=== PATIENT | male | born 1935 | race Caucasian/White ===

== ENCOUNTER 2023-01-13 14:52 | Inpatient (IN) | payer OTHER ==
[2023-01-13] MEDS ORDERED: ALBUTEROL SO4 2.5/IPRATROPIUM 0.5 INH SOL 3 ML VIAL.NEB. NEB ONE ×2 (18:06→18:33)
[2023-01-13 18:45] LABS: HEMATOCRIT 32.8 % (35.4-49); HEMOGLOBIN 10.9 GM/dL (11.7-16.9); MCH 26.9 pg (25.7-33.7); MCHC 33.2 g/dl (32.0-35.9); MEAN CELL VOLUME 80.8 fl (80-96); MEAN PLT VOLUME 8.2 fl (7.5-11.1); PLATELET COUNT 257 10^3/uL (134-434); RBC 4.06 M/mm3 (4.00-5.60); RDW 15.7 % (11.9-15.9); WHITE BLOOD COUNT 10.3 K/mm3 (4.0-10.0)
[2023-01-13 19:01] LABS: BLOOD UREA NITROGEN 27.8 mg/dL (7-18)
[2023-01-13 19:02] LABS: CALCIUM 8.2 mg/dL (8.5-10.1)
[2023-01-13 19:05] LABS: CREATININE 0.9 mg/dL (0.55-1.3); PHOSPHOROUS 2.7 mg/dL (2.5-4.9)
[2023-01-13 19:07] LABS: BILIRUBIN,TOTAL 0.9 mg/dL (0.2-1); TOT PROT 7.5 g/dl (6.4-8.2)
[2023-01-13] MEDS ORDERED: ALBUTEROL SO4 2.5/IPRATROPIUM 0.5 INH SOL 3 ML VIAL.NEB. NEB SCH (20:00)
[2023-01-13] MEDS ORDERED: DEXAMETHASONE SOD PHOSPHATE 4 MG/1 ML VIAL IVPUSH ONE (20:29)
[2023-01-13] MEDS ORDERED: DEXAMETHASONE SOD PHOSPHATE 10 MG/1 ML VIAL ONE (21:01)
[2023-01-13 21:33] LABS: ANISOCYTOSIS 0; MACROCYTOSIS 0; OVALOCYTE 1+
[2023-01-13 23:20] LABS: INR 3.05 (0.83-1.09)
[2023-01-13 23:22] LABS: ACTIVATED PTT 41.4 SECONDS (25.2-36.5)
[2023-01-13 23:36] LABS: CALCIUM 8.4 mg/dL (8.5-10.1)
[2023-01-13 23:37] LABS: BLOOD UREA NITROGEN 29.1 mg/dL (7-18)
[2023-01-14] MEDS ORDERED: AZITHROMYCIN IVPB 500 MG in DEXTROSE 5%-WATER - 250 ML IVPB ONE (04:33)
[2023-01-14] MEDS ORDERED: REMDESIVIR 200 MG in SODIUM CHLORIDE 250 ML IVPB ONE (05:45)
[2023-01-14] MEDS: SODIUM CHLORIDE 1,000 ML IV SCH ×2 (06:18→23:13)
[2023-01-14] MEDS: INSULIN SLIDING SCALE (NOVOLOG) 1 VIAL SQ SCH ×4 (06:24→21:21)
[2023-01-14] MEDS: CEFTRIAXONE 1 GM in DEXTROSE 5%-WATER - 50 ML IVPB SCH (09:24)
[2023-01-14] MEDS: LISINOPRIL 5 MG TABLET PO SCH (09:24)
[2023-01-14] MEDS: LORATADINE 10 MG TABLET PO SCH (09:24)
[2023-01-14] MEDS: NIFEdipine E.R. 90 MG TABLET PO SCH (09:24)
[2023-01-14] MEDS: CYANOCOBALAMIN 1,000 MCG TABLET (FP) PO SCH (09:25)
[2023-01-14 09:52] LABS: HEMATOCRIT 31.3 % (35.4-49); HEMOGLOBIN 10.5 GM/dL (11.7-16.9); MCHC 33.7 g/dl (32.0-35.9); MEAN CELL VOLUME 80.2 fl (80-96); MEAN PLT VOLUME 8.2 fl (7.5-11.1); PLATELET COUNT 276 10^3/uL (134-434); RDW 15.7 % (11.9-15.9); WHITE BLOOD COUNT 7.2 K/mm3 (4.0-10.0)
[2023-01-14] MEDS ORDERED: PATIENT'S OWN MEDICATION (NON-FORMULARY) (Diclofenac Sodium 0.01 MG/MG Gel) TP SCH (10:00)
[2023-01-14 10:13] LABS: BLOOD UREA NITROGEN 30.3 mg/dL (7-18); CALCIUM 8.3 mg/dL (8.5-10.1)
[2023-01-14 10:14] LABS: MAGNESIUM 2.1 mg/dL (1.8-2.4)
[2023-01-14 10:17] LABS: CREATININE 1.1 mg/dL (0.55-1.3); PHOSPHOROUS 3.1 mg/dL (2.5-4.9)
[2023-01-14 10:18] LABS: TOT PROT 7.3 g/dl (6.4-8.2)
[2023-01-14 11:16] LABS: ANISOCYTOSIS 3+; MACROCYTOSIS 0; OVALOCYTE 1+
[2023-01-14] MEDS ORDERED: IRON SUCROSE INJECTION 200 MG in SODIUM CHLORIDE 90 ML IVPB ONE (16:06)
[2023-01-14] MEDS: RIVAROXABAN 15 MG TABLET PO SCH (18:06)
[2023-01-14] MEDS: ATORVASTATIN CA 10 MG TABLET (FP) PO SCH (21:14)
[2023-01-15] MEDS ORDERED: REMDESIVIR 100 MG in SODIUM CHLORIDE 250 ML IVPB ONE (04:39)
[2023-01-15] MEDS: SODIUM CHLORIDE 1,000 ML IV SCH ×2 (05:50→23:12)
[2023-01-15] MEDS: INSULIN SLIDING SCALE (NOVOLOG) 1 VIAL SQ SCH ×4 (07:35→22:31)
[2023-01-15] MEDS ORDERED: IRON SUCROSE INJECTION 200 MG in SODIUM CHLORIDE 90 ML IVPB ONE (10:00)
[2023-01-15] MEDS ORDERED: DEXAMETHASONE 2 MG TABLET PO SCH (10:00)
[2023-01-15] MEDS: NIFEdipine E.R. 90 MG TABLET PO SCH (10:00)
[2023-01-15] MEDS ORDERED: AZITHROMYCIN IVPB 250 MG in DEXTROSE 5%-WATER - 250 ML IVPB SCH (10:00)
[2023-01-15] MEDS: LISINOPRIL 5 MG TABLET PO SCH (10:00)
[2023-01-15] MEDS ORDERED: REMDESIVIR 100 MG in SODIUM CHLORIDE 250 ML IVPB SCH (10:00)
[2023-01-15] MEDS: LORATADINE 10 MG TABLET PO SCH (10:00)
[2023-01-15] MEDS ORDERED: PANTOPRAZOLE 40 MG TABLET PO SCH (10:00)
[2023-01-15] MEDS: CYANOCOBALAMIN 1,000 MCG TABLET (FP) PO SCH (10:01)
[2023-01-15] MEDS: CEFTRIAXONE 1 GM in DEXTROSE 5%-WATER - 50 ML IVPB SCH (10:01)
[2023-01-15] MEDS: RIVAROXABAN 15 MG TABLET PO SCH (17:37)
[2023-01-15] MEDS: ATORVASTATIN CA 10 MG TABLET (FP) PO SCH (22:19)
[2023-01-16] MEDS ORDERED: SODIUM CHLORIDE 0.9% 500 ML INFUS.BAG IV ONE (00:29)
[2023-01-16 02:15] LABS: CHLORIDE 97 mmol/L (98-107); SODIUM 132 mmol/L (136-145)
[2023-01-16 02:17] LABS: CALCIUM 7.9 mg/dL (8.5-10.1)
[2023-01-16 02:18] LABS: ALBUMIN 2.6 g/dl (3.4-5.0); CO2 12 mmol/L (21-32); GLUCOSE,RANDOM 123 mg/dL (74-106)
[2023-01-16 02:22] LABS: CREATININE 3.3 mg/dL (0.55-1.3); SGOT/AST 932 U/L (15-37); SGPT/ALT 553 U/L (13-61)
[2023-01-16 02:23] LABS: TOT PROT 6.5 g/dl (6.4-8.2)
[2023-01-16 02:24] LABS: ALK PHOS 204 U/L (45-117); ANION GAP 23 MMOL/L (8-16); BILIRUBIN,TOTAL 0.6 mg/dL (0.2-1); BLOOD UREA NITROGEN 78.1 mg/dL (7-18)
[2023-01-16 02:28] LABS: LACTIC ACID 11.1 mmol/L (0.4-2.0)
[2023-01-16] MEDS: MUPIROCIN 2% TOPICAL OINTMENT FOR DECOLONIZATION NS SCH ×2 (02:30→10:05)
[2023-01-16] MEDS ORDERED: PIPERACILLIN/TAZOB 4.5 GM 4.5 GM in DEXTROSE 5%-WATER 100 ML IVPB SCH (02:56)
[2023-01-16] MEDS ORDERED: INSULIN REGULAR HUMAN 100 UNITS/ML *VIAL IVPUSH ONE ×2 (03:15→08:34)
[2023-01-16] MEDS ORDERED: DOPAMINE 400 MG/D5W - 400,000 MCG/250 ML INFUS.BAG IVPB SCH ×2 (03:30→12:15)
[2023-01-16] MEDS ORDERED: NOREPINEPHRINE BITARTRATE 4 MG/4 ML ML IV ONE (04:39)
[2023-01-16] MEDS ORDERED: VASOPRESSIN 20 UNITS/ML VIAL IV ONE (04:56)
[2023-01-16] MEDS ORDERED: VASOPRESSIN 40 UNITS/100 ML BAG IV SCH ×2 (05:00→05:30)
[2023-01-16] MEDS ORDERED: DEXTROSE 50%-WATER - 25 GM/50 ML VIAL IVPUSH ONE ×2 (05:00→08:39)
[2023-01-16] MEDS ORDERED: DEXTROSE 50%-WATER 25 GM/50 ML DISP.SYRIN ONE ×2 (05:05→08:58)
[2023-01-16] MEDS ORDERED: NOREPINEPHRINE BITARTRATE/D5W 8 MG/250 ML BAG IVPB SCH (05:30)
[2023-01-16] MEDS ORDERED: VANCOMYCIN 1 GM/200 ML PREMIX BAG (RESTRICTED TO ID ONLY) IVPB ONE (05:55)
[2023-01-16] MEDS ORDERED: FUROSEMIDE 40 MG/4 ML INJECTABLE VIAL IVPB ONE (06:30)
[2023-01-16] MEDS: HYDROCORTISONE SOD SUCCINATE 100 MG/2 ML VIAL IVPB SCH ×2 (06:43→10:08)
[2023-01-16 07:06] LABS: ARTERIAL BLOOD GAS BASE EXCESS -18.4 mmol/L (-2-2)
[2023-01-16 07:07] LABS: VENT MODE S/T
[2023-01-16 07:08] LABS: VENT RATE 24
[2023-01-16 07:09] LABS: ARTERIAL BLOOD GAS pH 7.137 (7.350-7.450)
[2023-01-16] MEDS ORDERED: TOCILIZUMAB (ACTEMRA) 200 MG/10 ML VIAL IVPB ONE (07:26)
[2023-01-16] MEDS: INSULIN SLIDING SCALE (NOVOLOG) 1 VIAL SQ SCH ×2 (07:34→10:14)
[2023-01-16 08:18] LABS: HEMATOCRIT 29.8 % (35.4-49); HEMOGLOBIN 9.2 GM/dL (11.7-16.9); MEAN CELL VOLUME 83.8 fl (80-96); PLATELET COUNT 255 10^3/uL (134-434); RBC 3.55 M/mm3 (4.00-5.60)
[2023-01-16 08:27] LABS: CHLORIDE 95 mmol/L (98-107); SODIUM 128 mmol/L (136-145)
[2023-01-16 08:29] LABS: CALCIUM 7.4 mg/dL (8.5-10.1)
[2023-01-16] MEDS ORDERED: SODIUM BICARBONATE 8.4% 50 MEQ/50 ML DISP.SYRIN IVPUSH SCH (08:30)
[2023-01-16 08:31] LABS: ALBUMIN 2.4 g/dl (3.4-5.0); ANION GAP 23 MMOL/L (8-16); CO2 10 mmol/L (21-32); GLUCOSE,RANDOM 250 mg/dL (74-106); MAGNESIUM 2.7 mg/dL (1.8-2.4)
[2023-01-16] MEDS ORDERED: LORazepam 2 MG/ML SDV VIAL IVPUSH ONE (08:32)
[2023-01-16 08:34] LABS: CREATININE 3.7 mg/dL (0.55-1.3)
[2023-01-16 08:35] LABS: BILIRUBIN,TOTAL 0.9 mg/dL (0.2-1)
[2023-01-16 08:36] LABS: ALK PHOS 186 U/L (45-117)
[2023-01-16] MEDS: SODIUM BICARBONATE 8.4% 50 MEQ/50 ML VIAL IVPUSH SCH ×2 (09:01→10:05)
[2023-01-16 09:02] LABS: SGOT/AST 4187 U/L (15-37); SGPT/ALT 1881 U/L (13-61)
[2023-01-16 09:13] LABS: ANISOCYTOSIS 3+; MACROCYTOSIS 0; OVALOCYTE 1+
[2023-01-16 09:16] LABS: LACTIC ACID 11.4 mmol/L (0.4-2.0)
[2023-01-16 09:17] LABS: WHITE BLOOD COUNT 39.6 K/mm3 (4.0-10.0)
[2023-01-16] MEDS ORDERED: SODIUM CHLORIDE 1,878 ML IV ONE (09:46)
[2023-01-16] MEDS ORDERED: IRON SUCROSE INJECTION 200 MG in SODIUM CHLORIDE 90 ML IVPB ONE (10:00)
[2023-01-16] MEDS ORDERED: FUROSEMIDE 40 MG TABLET (FP) PO SCH ×2 (10:00)
[2023-01-16] MEDS ORDERED: DEXAMETHASONE 2 MG TABLET PO SCH (10:00)
[2023-01-16] MEDS ORDERED: AZITHROMYCIN IVPB 250 MG in DEXTROSE 5%-WATER - 250 ML IVPB SCH (10:00)
[2023-01-16] MEDS ORDERED: CYANOCOBALAMIN 1,000 MCG TABLET (FP) PO SCH (10:00)
[2023-01-16] MEDS ORDERED: LORATADINE 10 MG TABLET PO SCH (10:00)
[2023-01-16] MEDS ORDERED: PANTOPRAZOLE 40 MG TABLET PO SCH (10:00)
[2023-01-16] MEDS ORDERED: CEFTRIAXONE 1 GM in DEXTROSE 5%-WATER - 50 ML IVPB SCH (10:00)
[2023-01-16] MEDS ORDERED: LISINOPRIL 5 MG TABLET PO SCH (10:00)
[2023-01-16] MEDS ORDERED: NIFEdipine E.R. 90 MG TABLET PO SCH (10:00)
[2023-01-16] MEDS ORDERED: REMDESIVIR 100 MG in SODIUM CHLORIDE 250 ML IVPB SCH (10:00)
[2023-01-16] MEDS ORDERED: SODIUM BICARBONATE 8.4% - 150 MEQ in DEXTROSE 5%-WATER - 950 ML IVPB SCH (11:00)
[2023-01-16] MEDS ORDERED: DOPAMINE 400 MG/D5W - 400,000 MCG/250 ML INFUS.BAG IVPB ONE (12:15)
[2023-01-16 12:16] LABS: PHOSPHOROUS 10.2 mg/dL (2.5-4.9)
[2023-01-16 13:09] VITALS: TEMP 97.5
[2023-01-16 13:10] VITALS: BP 39/16; PULSE 42; RESP 15
[2023-01-16 13:24] LABS: LACTIC ACID 11.8 mmol/L (0.4-2.0)
[2023-01-16] MEDS ORDERED: HEPARIN NA (PORCINE) 5,000 UNITS/ML 1ML VIAL SQ SCH (14:00)
[2023-01-16] MEDS ORDERED: RIVAROXABAN 15 MG TABLET PO SCH (18:00)
[2023-01-16 21:43] VITALS: BMI 23.6
[2023-01-16] MEDS ORDERED: CHLORHEXIDINE GLUCONATE 4% CLEANSER FOR DECOLONIZATION TP SCH (22:00)
[2023-01-16] MEDS ORDERED: ATORVASTATIN CA 10 MG TABLET (FP) PO SCH (22:00)
[2023-01-17] MEDS ORDERED: PIPERACILLIN/TAZOB 4.5 GM 4.5 GM in DEXTROSE 5%-WATER 100 ML IVPB SCH (03:00)
== END 2023-01-16 15:30 | disposition expired | DRG 871 ==
LOC: JER 14:52 → JERBED 20:27 → J5S 01-14 03:55 → JICU 01-16 03:37
PROVIDERS: ADMIT Internal Medicine; ATTEND Internal Medicine Pulmonary Disease
PROC: XW033E5 Introduction of Remdesivir Anti-infective into Peripheral Vein, Percutaneous Approach, New Technology Group 5 (ICD-10-PCS; principal; 2023-01-13)
PROC: 4A133B1 Monitoring of Arterial Pressure, Peripheral, Percutaneous Approach (ICD-10-PCS; 2023-01-13)
PROC: 4A133J1 Monitoring of Arterial Pulse, Peripheral, Percutaneous Approach (ICD-10-PCS; 2023-01-13)
PROC: 02HV33Z Insertion of Infusion Device into Superior Vena Cava, Percutaneous Approach (ICD-10-PCS; 2023-01-13)
PROC: B548ZZA Ultrasonography of Superior Vena Cava, Guidance (ICD-10-PCS; 2023-01-13)
DX: A41.9 Sepsis, unspecified organism (principal); J12.82 Pneumonia due to coronavirus disease 2019; U07.1 COVID-19; J96.01 Acute respiratory failure with hypoxia; K72.00 Acute and subacute hepatic failure without coma; R65.21 Severe sepsis with septic shock; N17.9 Acute kidney failure, unspecified; I50.32 Chronic diastolic (congestive) heart failure; J81.1 Chronic pulmonary edema; E87.1 Hypo-osmolality and hyponatremia; J90 Pleural effusion, not elsewhere classified; E87.20 Acidosis, unspecified; I10 Essential (primary) hypertension; Z86.73 Personal history of transient ischemic attack (TIA), and cerebral infarction without residual deficits; K31.89 Other diseases of stomach and duodenum; E78.5 Hyperlipidemia, unspecified; E11.9 Type 2 diabetes mellitus without complications; T68.XXXA Hypothermia, initial encounter; E87.5 Hyperkalemia; E87.70 Fluid overload, unspecified; D50.9 Iron deficiency anemia, unspecified
CPT/HCPCS: 0241U-QW; 36415; 36600; 71045-TC-FY; 71275-TC; 76705-TC; 80048; 80053; 80061; 82607; 82728; 82746; 82803; 82962; 82977; 83036; 83540; 83550; 83605; 83615; 83735; 84100; 84443; 84466; 84484; 85025; 85045; 85379; 85610; 85730; 86140; 87040; 87899; 93005; 93010; 93306-TC; 93970-TC; 94010; 94660; 97116-GP; 97161-GP; 99285-25; C9399; J1756; J3490